=== PATIENT | female | born 1985 | race Caucasian/White ===

== ENCOUNTER 2020-09-01 08:26 | Day surgery (SDC) | payer OTHER ==
[2020-09-01] MEDS ORDERED: CASIRIVIMAB 1,200 MG, IMDEVIMAB 1,200 MG in Sodium Chloride 0.9% 250 ML 250 ML IV SCH (09:15)
[2020-09-01] MEDS ORDERED: diphenhydrAMINE 50 MG/ML VIAL ONE (09:17)
[2020-09-01] MEDS ORDERED: Acetaminophen 500 MG TAB PO PRN (09:17)
[2020-09-01] MEDS ORDERED: Acetaminophen 500 MG TAB ONE (09:17)
[2020-09-01] MEDS ORDERED: diphenhydrAMINE 50 MG/ML VIAL IVP PRN (09:20)
== END 2020-09-01 12:15 | disposition home or self-care (01) ==
LOC: CSHSDC/OP 08:26
PROVIDERS: ATTEND Family Medicine
DX: Z23 Encounter for immunization (principal); U07.1 COVID-19
CPT/HCPCS: 96365; 96374; J1200; J7050; M0243; Q0243